=== PATIENT | male | born 1990 | race African-American/Black ===

== ENCOUNTER 2022-04-12 20:31 | Emergency (ER) | payer OTHER ==
[~2022-04-12] VITALS: Ht 167.6 cm; Wt 80.8 kg
[2022-04-12 20:44] VITALS: BP 151/96; TEMP 99.1
[2022-04-12] MEDS ORDERED: HYDR25SU3 RE (21:40)
== END 2022-04-12 22:00 | disposition home or self-care (01) ==
LOC: ED 20:31
DX: K64.8 Other hemorrhoids (principal)
CPT/HCPCS: 82272; 99284